=== PATIENT | female | born 1990 | race Caucasian/White ===

== ENCOUNTER 2019-02-04 09:45 | Emergency (ER) | payer OTHER ==
[~2019-02-04] VITALS: Ht 170.2 cm; Wt 98.9 kg
[2019-02-04] MEDS ORDERED: PRENATABS FA T1 EACH (10:02)
== END 2019-02-04 13:59 | disposition home or self-care (01) ==
LOC: ER 09:45
DX: O46.8X1 Other antepartum hemorrhage, first trimester (principal); Z34.01 Encounter for supervision of normal first pregnancy, first trimester

== ENCOUNTER 2019-04-23 14:53 | Inpatient (IN) | payer OTHER ==
[~2019-04-23] VITALS: Ht 170.2 cm; Wt 104.3 kg
[~2019-04-23 14:53] MED LIST: PRENATABS FA T1 EACH
[2019-04-28] MEDS ORDERED: NIFEDIPINE ER30 MG PO (10:52)
== END 2019-04-28 14:39 | DRG 817 ==
LOC: OB/GYN 14:53 → LDR 14:53 → O/R 04-25 11:28 → LDR 04-25 11:53 → OB/GYN 04-26 13:24 → LDR 04-26 16:48 → OB/GYN 04-26 19:54
PROVIDERS: ADMIT Obstetrics & Gynecology
PROC: 4A1HXCZ Monitoring of Products of Conception, Cardiac Rate, External Approach (ICD-10-PCS; 2019-04-23)
PROC: 0UVC7ZZ Restriction of Cervix, Via Natural or Artificial Opening (ICD-10-PCS; principal; 2019-04-25 10:00)
PROC: BY4CZZZ Ultrasonography of Second Trimester, Single Fetus (ICD-10-PCS; 2019-04-27)
PROC: BU4CZZZ Ultrasonography of Uterus and Ovaries (ICD-10-PCS; 2019-04-27)
DX: O34.32 Maternal care for cervical incompetence, second trimester (principal); O60.02 Preterm labor without delivery, second trimester; O26.842 Uterine size-date discrepancy, second trimester; O26.872 Cervical shortening, second trimester; Z3A.21 21 weeks gestation of pregnancy

== ENCOUNTER 2019-06-12 08:53 | Outpatient (CLI) | payer OTHER ==
[~2019-06-12 08:53] MED LIST changes: +NIFEDIPINE ER30 MG PO
== END 2019-06-12 10:30 | disposition home or self-care (01) ==
LOC: NST 08:53
DX: Z34.83 Encounter for supervision of other normal pregnancy, third trimester (principal)

== ENCOUNTER 2019-07-10 07:45 | Outpatient (CLI) | payer OTHER | END 2019-07-10 08:24 | disposition home or self-care (01) | LOC: NST 07:45 | DX: Z34.83 Encounter for supervision of other normal pregnancy, third trimester (principal) ==

== ENCOUNTER 2019-07-23 12:57 | Outpatient (CLI) | payer OTHER | END 2019-07-23 13:46 | disposition home or self-care (01) | LOC: NST 12:57 | DX: Z34.83 Encounter for supervision of other normal pregnancy, third trimester (principal) ==

== ENCOUNTER 2019-08-08 03:28 | Outpatient (CLI) | payer OTHER | END 2019-08-08 11:11 | disposition home or self-care (01) | LOC: OBS/DEL 03:28 | DX: O26.893 Other specified pregnancy related conditions, third trimester (principal); R10.32 Left lower quadrant pain; R10.2 Pelvic and perineal pain; N20.0 Calculus of kidney; N20.1 Calculus of ureter ==

== ENCOUNTER 2019-08-13 11:06 | Inpatient (IN) | payer OTHER ==
[~2019-08-13] VITALS: Ht 170.2 cm; Wt 113.4 kg
== END 2019-08-27 13:10 | disposition home or self-care (01) | DRG 807 ==
LOC: LDR 08-25 02:25 → SURG-SUITE 08-25 02:25 → LDR 08-25 02:28 → SURG-SUITE 08-25 11:43 → OB/GYN 09-07 12:00
PROVIDERS: ADMIT Obstetrics & Gynecology
PROC: 10E0XZZ Delivery of Products of Conception, External Approach (ICD-10-PCS; principal; 2019-08-25)
PROC: 4A1HXCZ Monitoring of Products of Conception, Cardiac Rate, External Approach (ICD-10-PCS; 2019-08-25)
PROC: 0UQGXZZ Repair Vagina, External Approach (ICD-10-PCS; 2019-08-25)
DX: O71.4 Obstetric high vaginal laceration alone (principal); Z37.0 Single live birth; Z3A.38 38 weeks gestation of pregnancy

== ENCOUNTER 2019-08-21 09:25 | Outpatient (CLI) | payer OTHER | END 2019-08-21 10:20 | disposition home or self-care (01) | LOC: NST 09:25 | DX: Z34.83 Encounter for supervision of other normal pregnancy, third trimester (principal) ==

== ENCOUNTER 2019-08-24 12:47 | Outpatient (CLI) | payer OTHER | END 2019-08-24 13:49 | disposition home or self-care (01) | LOC: NST 12:47 | DX: Z34.83 Encounter for supervision of other normal pregnancy, third trimester (principal) ==

== ENCOUNTER → 2022-05-05 | Day surgery (SDC) | payer OTHER ==
[~2022-05-05] VITALS: Ht 170.2 cm; Wt 100.2 kg
== END | disposition home or self-care (01) ==
LOC: ER 10:33 → CIR.AMB 14:43 → ER 14:43 → CIR.AMB 14:43 → O/R 14:43 → SEC-K 14:43 → O/R 14:59 → SEC-K 14:59 → EDSTATUS 17:00 → O/R 22:55
PROVIDERS: ATTEND General Practice
DX: O34.32 Maternal care for cervical incompetence, second trimester (principal); Z3A.15 15 weeks gestation of pregnancy; Z20.822 Contact with and (suspected) exposure to COVID-19; I10 Essential (primary) hypertension

== ENCOUNTER 2022-10-11 17:08 | Outpatient (CLI) | payer OTHER | END 2022-10-11 18:59 | disposition home or self-care (01) | LOC: NST 17:08 | PROVIDERS: ATTEND Obstetrics & Gynecology Gynecology | DX: Z34.83 Encounter for supervision of other normal pregnancy, third trimester (principal) ==

== ENCOUNTER 2022-10-18 14:30 | Inpatient (IN) | payer OTHER ==
[~2022-10-18] VITALS: Ht 170.2 cm; Wt 111.1 kg
== END 2022-10-23 15:04 | disposition home or self-care (01) | DRG 807 ==
LOC: LDR 10-21 01:10 → OB/GYN 10-21 01:10 → LDR 10-27 14:30
PROVIDERS: ADMIT Obstetrics & Gynecology; ATTEND Obstetrics & Gynecology
PROC: 10E0XZZ Delivery of Products of Conception, External Approach (ICD-10-PCS; principal; 2022-10-21)
PROC: 0UQG7ZZ Repair Vagina, Via Natural or Artificial Opening (ICD-10-PCS; 2022-10-21)
PROC: 4A1HXCZ Monitoring of Products of Conception, Cardiac Rate, External Approach (ICD-10-PCS; 2022-10-21)
DX: O71.4 Obstetric high vaginal laceration alone (principal); Z37.0 Single live birth; Z3A.39 39 weeks gestation of pregnancy; Z20.822 Contact with and (suspected) exposure to COVID-19

== ENCOUNTER 2022-10-20 11:19 | Outpatient (CLI) | payer OTHER | END 2022-10-20 12:53 | disposition home or self-care (01) | LOC: NST 11:19 | PROVIDERS: ATTEND Obstetrics & Gynecology Gynecology | DX: Z34.83 Encounter for supervision of other normal pregnancy, third trimester (principal) ==